=== PATIENT | female | born 1970 | race Caucasian/White ===

== ENCOUNTER 2018-07-25 05:40 | Day surgery (SDC) | payer OTHER ==
[~2018-07-25] VITALS: Ht 157.5 cm; Wt 69.7 kg
[2018-07-25] VITALS (15 sets, daily range): BP systolic 102–136; BP diastolic 58–87; PULSE 66–74; RESP 14–21; Ht 157.5 cm; Wt 69.7 kg
[2018-07-25] MEDS ORDERED: LIDOCAINE 1% (MPF) 30 ML INJ ONE (06:47)
[2018-07-25] MEDS ORDERED: ROPIVACAINE 0.5 % 30 ML VIAL ONE (06:47)
[2018-07-25] MEDS ORDERED: NEOMYC/POLYMYX/BACIT 30 GM OINT ONE (06:48)
[2018-07-25] MEDS ORDERED: LEVO100T82 PO (07:11)
[2018-07-25] MEDS ORDERED: ATOR20TA38 PO (07:11)
[2018-07-25] MEDS ORDERED: FENO145T37 PO (07:11)
[2018-07-25] MEDS ORDERED: CHOL500010 PO (07:12)
--- NOTE | 2018-07-25 07:20 | PREAC ---
Date/Time of Note Date/Time of Note DATE: 07/25/18 TIME: 07:20 Anesthesia Eval and Record Evaluation Time Pre-Procedure Interview DATE: 07/25/18 TIME: 07:20 Age 47 Sex female NPO: 8 hrs Preoperative diagnosis knee pain L Planned procedure L knee arthroscopy Past Medical History Past Medical History: Includes Cardio: Dyslipidemia Endo: Hypothyroid GI: Obesity Surgery & Anesthesia Issues No known issue Meds Anticoagulation: No Beta Monty within 24 hr: No Reason Beta Monty not given: Pt. not on B-Monty Reported Medications Cholecalciferol (Vitamin D3) 5,000 Unit Tablet, 5000 UNIT PO DAILY, TAB 07/25/18 Atorvastatin Calcium* (Atorvastatin Calcium*) 20 Mg Tablet, 20 MG PO QHS, #30 TAB 07/25/18 Fenofibrate Nanocrystallized* (Fenofibrate*) 145 Mg Tablet, 145 MG PO DAILY, TAB 07/25/18 Levothyroxine Sodium* (Levoxyl*) 100 Mcg Tablet, 100 MCG PO BEFORE BREAKFAST, #30 TAB 07/25/18 Meds reviewed: Yes Allergies Coded Allergies: No Known Allergy (Unverified , 07/25/18) Allergies Reviewed: Yes Labs/Studies Labs Reviewed: Reviewed by anesthesiologist test: Negative Pre-procedure Exam Last vitals Vital Signs Date Temp Pulse Resp B/P (MAP) Pulse Ox O2 O2 Flow FiO2 Time Delivery Rate 07/25/18 97.5 74 18 127/74 97 Room Air 07:06 (91) Airway: Adequate mouth opening, Adequate thyromental dist Mallampati: Mallampati II Teeth: Normal Lung: Normal Heart: Normal ASA Physical Status ASA physical status: 2 Emergency: None Planned Anesthetic General/MAC: ETT Pre-operative Attestations Prior to commencing anesthesia and surgery, the patient was re-evaluated, there was verification of: *The patient's identity *The results of appropriate recent lab work and preoperative vital signs *The above evaluation not changing prior to induction *Anesthetic plan, risk benefits, alternative and complications discussed with patient/family; questions answered; patient/family understands, accepts and wishes to proceed. RUSSELL ALTAMIRANO Jul 25, 2018 07:20
[2018-07-25] MEDS ORDERED: HYDROmorphONE 1 MG/5 ML IV SYRINGE IV PRN ×3 (07:30)
[2018-07-25] MEDS ORDERED: ALBUTEROL 0.083% (NEB) 2.5 MG/3 ML AMP HHN PRN (07:30)
[2018-07-25] MEDS ORDERED: ONDANSETRON 4 MG INJ IV PRN (07:30)
[2018-07-25] MEDS ORDERED: MEPERIDINE 25 MG INJ IV PRN (07:30)
[2018-07-25] MEDS ORDERED: METOCLOPRAMIDE 10 MG INJ IV PRN (07:30)
[2018-07-25] MEDS ORDERED: FENTAnyl 50 MCG/ML VIAL IV PRN ×2 (07:30)
[2018-07-25] MEDS ORDERED: DIPHENHYDRAMINE 50 MG INJ IV PRN (07:30)
--- NOTE | 2018-07-25 07:41 | HPN ---
Date/Time of Note Date/Time of Note DATE: 07/25/18 TIME: 07:41 Interval H&P Admission Note Pt. seen H&P reviewed: No system changes SIMRAN JOLLEY MD Jul 25, 2018 07:41
[2018-07-25] MEDS ORDERED: FENTAnyl 50 MCG/ML VIAL ONE (07:55)
[2018-07-25] MEDS ORDERED: DESFLURANE 15 MIN ONE (08:00)
[2018-07-25] MEDS ORDERED: morphine 2 MG INJ IV PRN (08:00)
[2018-07-25] MEDS ORDERED: LIDOCAINE 100 MG SYRINGE ONE (08:12)
[2018-07-25] MEDS ORDERED: PROPOFOL 20 ML ONE (08:12)
[2018-07-25] MEDS ORDERED: SUCCINYLCHOLINE CHLORIDE 100 MG/5 ML SYG IV ONE (08:12)
[2018-07-25] MEDS ORDERED: CEFAZOLIN 1 GM INJ ONE (08:12)
[2018-07-25] MEDS ORDERED: ROCURONIUM 50 MG INJ ONE (08:12)
[2018-07-25] MEDS ORDERED: GLYCOPYRROLATE 0.4 MG INJ ONE (08:53)
[2018-07-25] MEDS ORDERED: NEOSTIGMINE 3 MG/3 ML SYRINGE ONE (08:53)
[2018-07-25] MEDS: FENTAnyl 50 MCG/ML VIAL IV PRN ×2 (09:41→09:48)
--- NOTE | 2018-07-25 10:04 | PAC ---
Date/Time of Note Date/Time of Note DATE: 07/25/18 TIME: 10:04 Post-Anesthesia Notes Post-Anesthesia Note Last documented vital signs Vital Signs Date Temp Pulse Resp B/P (MAP) Pulse Ox O2 O2 Flow FiO2 Time Delivery Rate 07/25/18 68 21 121/70 97 Room Air 09:45 (87) 07/25/18 6.0 09:15 07/25/18 98.3 09:05 Activity: WNL Respiratory function: WNL Cardiovascular function: WNL Mental status: Baseline Pain reasonably controlled: Yes Hydration appropriate: Yes Nausea/Vomiting absent: Yes RUSSELL ALTAMIRANO Jul 25, 2018 10:04
--- NOTE | 2018-07-25 15:37 | OPR ---
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 Operation/Procedure Performed Left knee arthroscopy with lateral meniscal repair Left arthroscopy with partial medial meniscectomy Left knee arthroscopy with chondroplasty Left knee application of platelet rich plasma spun a 2% hematocrit Surgeon Rodney Jolley MD Rework Machine Operator None Anesthesia Type: general, other (local) Anesthesiologist: RUSSELL ALTAMIRANO Tourniquet Time: 28 min at 250 mm Hg Estimated Blood Loss: minimal Transfusion none Specimen none Grafts/Implants Arthrex meniscal cinch Complications none Pt Condition Post Procedure: stable Disposition: PACU Indications INDICATIONS: Patient is a 47-year-old female with ongoing Left knee pain. The patient has complained of having catching, clicking and locking symptoms over the medial and lateral aspect of the knee with no relief with physical therapy or anti-inflammatory. Patient has decided to proceed with surgery. RISK NOTE: Patient was explained the risks and benefits of the surgery in the patients [place] language, including not limited to infection, bleeding, loss of limb, loss of life, need for future surgery, risk of anesthesia, risk of injury to the blood vessels and nerves, ligaments or tendons, and risk of deep vein thrombosis. Patient understood these risks and wished to proceed with the surgery. Procedure Description The correct operative site was noted and marked in the preoperative holding area. The patient was then brought back into the operative theater, placed supine on the operative table. Left knee was examined under anesthesia. Range of motion was 0-120. There is no varus or valgus or anterior or posterior instability. There is crepitus noticed at the patellofemoral joint. Tourniquet was then placed on the operative extremity thigh non-sterilely. Patient was then given preoperative antibiotics and then prepped and draped in normal sterile fashion. A timeout was taken and all parties in the room agreed it was the correct patient, correct extremity and correct procedure. Standard anterior lateral portal was created and the knee joint was entered with a blunt tipped trocar, followed by 30 arthroscope. Inflow was achieved with a pump and the pressure maintained at approximately 50 mmHg. A routine arthroscopic surgery was performed. Suprapatella pouch was unremarkable. The undersurface of the patella showed advanced grade 1 chondromalacia The medial and lateral gutters were visualized. There were no loose bodies seen. There is an inflamed hypertrophic plica noted in the anterior and superior medial aspect of the knee. The popliteus hiatus was entered and was normal. Lateral compartment was entered and grade 3 chondromalacia was seen on the lateral tibial plateau and grade 2 on the lateral femoral condyle. There was a posterior horn meniscal tear that extended to the mid body. The mid body tear was debrided with with a biter and a shaver to a firm and stable rim. The posterior horn tear was rasped with a meniscal rasp and found to be in the posterior aspect of the meniscus and repaired with an Arthrex meniscal cinch. The repair was then probed and found to be stable. A chondral plasty was then carried out along the weightbearing aspect of the lateral femoral condyle and Tibial plateau, taking care to remove only loose articular cartilage debris preserved functional articular cartilage. Scope was then brought into the intercondylar notch and an anteromedial portal was made. Shaver was brought into the knee and small amount of fat pad and scar tissue was initially gently debrided. The anterior cruciate ligament was intact and probed. The knee was brought into a valgus position and the medial compartment was entered. The articular surface of the medial femoral condyle and medial tibial plateau revealed diffuse grade 1/2 chondromalacia. There was a degenerative posterior horn medial meniscus tear extending to the midbody that was associated with a radial tear that visualized and debrided gently with a motorized shaver and basket forceps, the posterior horn demonstrated a degenerative tear and fibrillation pattern. The motorized shaver and basket biters were used to smooth the remaining meniscal rim, with care to maintain the peripheral meniscal rim. A probe was introduced and this was carefully probed and was found to be stable. Chondroplasty was then carried out along the weightbearing aspect of the medial femoral condyle, medial tibial plateau, taking care to remove only loose articular cartilage debris and preserve functional articular cartilage. The lateral compartment was reentered and the loose chondral debris was debrided with motorized shaver. Attention was then directed back to the patella femoral joint and a chondroplasty was carried out along the weightbearing aspect of the trochlea and undersurface of the patella to again remove loose debris and maintain functional active articular cartilage. The knee was then irrigated with additional 2 L of lactated Ringers solution. Excess fluid was then drained. Range of motion was then attempted showing 0- 125 degrees of motion The portal sites were closed with 4-0 Monocryl and Steri-Strips and dressed with Xeroform and triple antibiotic ointment. The knee was then injected with 20 cc of 0.5% plain ropivacaine and 5 cc of platelet rich plasma spun of 2% hematocrit. A dry sterile dressing was then applied, followed by a compressive bulky soft bandage and an SHILOH Wrap. A knee brace was placed on the knee locked in full extension. At the completion of the surgery patient had palpable pulses, soft arms and brisk cap refill. The patient tolerated the procedure well and was taken to the PACU without any complications. All sponge and needle counts were correct. Patient will begin pain medicine and 48 hours of antibiotics as well as aspirin 81 mg for the duration of 4 weeks postoperatively RODNEY JOLLEY MD Jul 25, 2018 15:36
== END 2018-07-25 11:55 | disposition home or self-care (01) ==
LOC: SDS 05:40
PROVIDERS: ATTEND Orthopaedic Surgery
DX: S83.272D Complex tear of lateral meniscus, current injury, left knee, subsequent encounter (principal); S83.242D Other tear of medial meniscus, current injury, left knee, subsequent encounter; X58.XXXD Exposure to other specified factors, subsequent encounter; M94.262 Chondromalacia, left knee
CPT/HCPCS: 29880; 82306; J0690; J1170; J2001; J2175; J2405; J2710; J2795; J3010; Z7512; Z7610